=== PATIENT | female | born 1945 | race Caucasian/White ===

== ENCOUNTER 2016-12-18 09:58 | Inpatient (IN) ==
[2016-12-18] MEDS ORDERED: ONDANSETRON 4 MG/2 ML VIAL IV PRN (10:30)
--- NOTE | 2016-12-18 10:42 | Emergency Department Note ---
Lucy Marsh Gwan, am scribing for, and in the presence of, Austen Garcia MD 10:40 . Radha Marsh James D, MD, personally performed the services described in this documentation, ascribed by Moe Ayala in my presence, and it is both accurate and complete . Arrival - Arrival Chief Complaint: GI Bleed/Rectal Stated Complaint: abdominal cramping blood rectum excessive pain ED Nursing Triage Note: PT C/O BRIGHT RED BLOOD IN STOOL WITH CLOTS SINCE YESTERDAY MORNING AT 0400. DENIES RECTAL PAIN Mode of Arrival: Ambulatory Limitations: No Limitations Source: Patient, Family, Old Records Reviewed, RN Notes Reviewed Time Seen by Provider: 12/18/16 10:30 - History of Present Illness HPI Narrative: Patient is a 71 y/o female who presents to the ED with a c/o bright red stool with presence of clots with an onset yesterday at 0300. Patient stated that she has been constipated, that her pain from the left side of her abd radiates to her back and that she takes Linzess every morning to help with BM. Her associated sxs have been abd pain and vomiting. She is being followed by Dr. Nathan for lymphoma. Her PCP is Patricia Riley. Patient has a SHx of smoking .5 ppd cigarettes. She denies any rectal pain or having a scope performed. Patient was advised to remain in hospital for further evaluation. Onset (ago): hour(s) Consistency: constant Severity: moderate Allergies/Adverse Reactions: Allergies Allergy/AdvReac Type Severity Reaction Status Date / Time Sulfa (Sulfonamide AdvReac Unknown Diarrhea Verified 12/18/16 10:23 Antibiotics) ketorolac [From Toradol] AdvReac Agitated Verified 12/18/16 10:24 Home Medications: Home Medications Medication Instructions Recorded Confirmed Type fentaNYL [Fentanyl 50 mcg/hr Patch] 1 patch TRANSDERM Q3DAY #5 patch 12/03/15 Rx Enalapril Maleate [Enalapril 5 mg PO QAM 12/22/15 12/18/16 History Maleate] Linaclotide [Linzess] 290 mcg PO QAM 12/22/15 12/18/16 History Tapentadol HCl [Nucynta] 50 - 100 mg PO BID PRN 12/22/15 12/18/16 History Docusate Sodium [Colace] 100 mg PO BEDTIME 12/18/16 12/18/16 History Review of System - Review of System 12 point system: reviewed and no additional remarkable complaints except as stated - Review of System Constitutional: Absent: chills, fever Eyes: Absent: discharge, pain Head/Ears/Nose/Throat: Absent: earache, epistaxis Gastrointestinal: Present: as per HPI, abdominal pain, other (blood in stool) Medical,Surgical,& Family Hx - Medical History Cardio: History of: Hypertension HEENT: History of: Ear Problem (cater pulled tubes 12/21/15) Gastrointestinal: History of: GERD, GI Problems (abdominal wrapping/done by dr bynum) Musculoskeletal: History of: Degenerative Disk Disease, Osteoporosis, Musculoskeletal Problems (lost 7 vetebrae in back) No history of: Amputation Hematology: History of: Hematologic Cancer No history of: Anemia, Bleeding Problems, Clotting Problems, Blood Disorders Reproductive: No history of: Abnormal Pap Smear, Breast Cancer, Endometriosis, Ectopic , Ovarian Cysts, Complication Other: History of: Miscellaneous Medical Problems (LYMPHOMA (REMISSION FOR 2 YEARS)) - Surgical History Cardiac Surgeries: Patient Denies: Femoral-Popliteal Bypass Graft, Cardiac Catheterization, Cardiac Surgery, Carotid Endarterectomy, Internal Defibrillator, Vascular Access Devices Thoracic Surgeries: Patient denies;: Organ Transplant Neurologic Surgeries: Patient denies: Neurologic Surgery HEENT Surgeries: Patient denies: Carotid Endarterectomy Abdominal Surgeries: Surgical HX of: EGD (10 years ago) Patient denies: Splenectomy Reproductive Surgeries: Surgical HX of;: Hysterectomy (1971) Orthopedic Surgeries: Surgical HX of;: Implanted Devices (port removed 1 month ago) Patient denies;: Orthopedic Surgery, Spinal Surgery, Total Hip Replacement, Total Knee Replacement - Family History Family History: Reports;: Family Diabetes (mother/diabetes), Family Heart Disease (father), Family Hypertension (mother), Family Stroke (father/stroke) Denies;: Family Anesthesia Reaction, Family Cancer, Family Psychiatric Problems - Social History Smoking Status: Current every day smoker Frequency of Alcohol Use: None Type of Drug Use: None Exam Physical Examination: GENERAL: This is a ill-appearing white female in no apparent distress. VITAL SIGNS: HEENT: Head is normocephalic and atraumatic. Pupils are equally round and reactive to light. Extraocular movement are intact. Oropharynx is benign with moist mucous membranes. NECK: Neck is soft and supple without tenderness. There are no masses. There is no lymphadenopathy. LUNGS: Lungs are clear to auscultation bilaterally. Chest rises symmetrically. There is no chest wall tenderness. CV: Heart is regular rate and rhythm without murmurs, rubs, or gallops. ABDOMEN: Abdomen is soft, tender to palpation the left upper and left lower quadrants. There are no abnormal masses palpated. There is no organomegaly. Bowel sounds are present and active. Rectal: Grossly positive blood SKIN: Skin is warm and dry. No rash. EXTREMITIES: Patient has full range of motion without tenderness. There is no pedal edema. NEUROLOGIC: Awake, alert, and oriented x4. Cranial nerves II through XII are grossly intact. There are no motorsensory deficits. PSYCHIATRIC: Normal affect. Normal mood. Vital Signs: Vital Signs Temperature 98.0 F 12/18/16 10:18 Pulse Rate 72 12/18/16 10:18 Respiratory Rate 16 12/18/16 10:18 Blood Pressure 106/56 12/18/16 10:18 O2 Sat by Pulse Oximetry 97 12/18/16 10:18 Course - Consultations Consultation #1: Discussed with hospitalist. Patient will be admitted to their service. Time: 11:56 Results - Labs CBC & BMP: 12/18/16 11:04 12/18/16 11:04 Lab Results: I have reviewed the patients labs Labs: Laboratory Tests 12/18/16 11:04 WBC 14.4 H RBC 3.44 L Hgb 12.0 Hct 35.1 L MCH 35 H Neut % (Auto) 86.4 H Lymph % (Auto) 6.4 L Neut # (Auto) 12.4 H Lymph # (Auto) 0.9 L Laboratory Tests 12/18/16 12/18/16 12/18/16 11:04 11:04 11:04 Macrocytosis 1+ [place] Cells Slight INR 1.1 PT Patient/Control Mix 11.5 Circ Anticoag PTT 27.6 Sodium 130 L Potassium 3.7 Chloride 99 Carbon Dioxide 25 BUN 11 Creatinine 0.70 Calculated Osmolality 257.8 L ALT 12 L - EKG EKG results: interpreted by ERMD - Impressions EKG: Normal sinus rhythm, rate 66, nonspecific ST-T wave changes. - Diagnostic Findings Procedure: Abdominal x-ray: image reviewed by me (Nonspecific gas pattern), Chest x-ray: image reviewed by me (No infiltrates, no pleural effusions.) Disposition Clinical Impression: Lower GI bleeding Case discussed with: patient Disposition: Still a Patient Condition: Stable
[2016-12-18 11:11] LABS: Basophils # 0.1 10*3/uL (0.0-0.2); Basophils % 0.3 % (0.0-0.8); Eosinophils # 0.1 10*3/uL (0.0-0.87); Eosinophils % 0.6 % (0.00-10.9); Hematocrit 35.1 VOL% (35.7-47.0); Immature Granulocytes % 0.5 %; Immature Granulocytes Absolute 0.07 #; Lymphocytes # 0.9 10*3/uL (1.4-4.0); Lymphocytes % 6.4 % (21.3-54.2); Mean Corpuscular HGB Conc 34.2 GM/DL (32-36); Mean Corpuscular Hemoglobin 35 PG (27-34); Mean Platelet Volume 9.7 FL (9.6-12.0); Monocytes # 0.8 10*3/uL (0.11-0.8); Monocytes % 5.8 % (1.7-12.7); Neutrophils # 12.4 10*3/uL (1.4-7.4); Neutrophils % 86.4 % (38.7-73.9); Platelet Count 166 T/CUMM (130-400); Red Blood Count 3.44 MC/CUMM (3.8-5.5); Red Cell Distribution Width 15.8 % (9.3-17.3); White Blood Count 14.4 T/CUMM (4-12)
[2016-12-18 11:22] LABS: INR 1.1; PT Patient Result 11.5 SECS; Partial Thromboplastin Time 27.6 SECS (0-40)
[2016-12-18 11:29] LABS: Burr Cells Slight; Macrocytosis 1+
[2016-12-18 11:41] LABS: Alanine Aminotransferase 12 U/L (13-56); Albumin 3.7 G/DL (3.4-5.0); Alkaline Phosphatase 84 U/L (45-117); Aspartate Amino Transferase 19 U/L (0-37); Bilirubin,Total < 0.39 MG/DL (0.2-1.0); Blood Urea Nitrogen 11 MG/DL (7-18); Calcium 8.6 MG/DL (8.5-10.1); Glucose 83 MG/DL (74-106); Osmolality,Calculated 257.8 MOS/KG (273-304); Potassium 3.7 MMOL/L (3.5-5.1); Sodium 130 MMOL/L (136-145); Total Protein 6.4 G/DL (6.4-8.3)
--- NOTE | 2016-12-18 11:51 | XRay Report ---
Abdomen, 2 views History is abdominal pain Comparison 06/06/2014 There is mild gaseous distention of colon. Small bowel loops measure up to 2 cm with scattered diffuse air-fluid levels No free air or organomegaly seen Scoliotic deformity with chronic thoracolumbar compression fractures again seen. There is diffuse demineralization Impression: Mild ileus PROCEDURE INTERPRETED AT [facility] DEPARTMENT OF RADIOLOGY Final Report Signed by: Dr. Mendy Hollingsworth
--- NOTE | 2016-12-18 11:52 | XRay Report ---
History short of breath Comparison 12/22/2015 The heart is mildly enlarged with mild diffuse prominence the descending thoracic aorta seen on prior studies Lung markings unchanged. The lungs are diffusely hyperexpanded without confluent infiltrates seen. Impression: Mild cardiomegaly without acute infiltrate PROCEDURE INTERPRETED AT [facility] DEPARTMENT OF RADIOLOGY Final Report Signed by: Dr. Mendy Hollingsworth
[2016-12-18] MEDS ORDERED: fentaNYL 100 MCG/2 ML VIAL IV STA (12:28)
[2016-12-18] MEDS ORDERED: fentaNYL 100 MCG/2 ML VIAL ONE (12:29)
[2016-12-18] MEDS ORDERED: ONDANSETRON 4 MG/2 ML VIAL ONE (12:29)
[2016-12-18] MEDS ORDERED: ACETAMINOPHEN 325 MG TABLET PO PRN (12:32)
--- NOTE | 2016-12-18 14:53 | Hospitalist History & Physical ---
Assessment and Plan (1) Lower GI bleeding Status: Acute Assessment and plan: Admit to the hospitalist service. Monitored bed. NPO for now. Order serial h&h. Consult GI. IV hydration. Monitor patient. Current Visit: Yes (2) Chronic pain syndrome Status: Acute Assessment and plan: Pt. has fetanyl patch. Order prn po medications. Current Visit: No (3) History of lymphoma Status: Acute Current Visit: No History of Present Illness Chief complaint: shortness of breath History of present illness: Ms. Garcia is a 71 year old white female with a history of htn, gerd, degenerative disk disease, lymphoma, osteoporsis that presented to the ED today with complaints of bright red blood per rectum that began yesterday morning around 3 am. Pt.'s daughter is present at the bedside. Pt. also reports one episode of nausea and vomiting with abdominal pain associated with the bleeding. Pt. states that she has problems with constipation but this morning her stool was loose. Pt. denies fever, chills, dizziness, or rectal pain. H&H is 12/35 currently. CXR shows mild cardiomegaly without acute infiltrate. While in ED, pt also reports having another bloody stool. Pt's case has been discussed with Dr. Nicole, she will be admitted to the hospitalist service for further eval and treatment. Home Medications Medication Instructions Recorded Confirmed Type Enalapril Maleate [Enalapril 5 mg PO QAM 12/22/15 12/18/16 History Maleate] Linaclotide [Linzess] 290 mcg PO QAM 12/22/15 12/18/16 History Tapentadol HCl [Nucynta] 50 - 100 mg PO BID PRN 12/22/15 12/18/16 History Docusate Sodium [Colace] 100 mg PO BEDTIME 12/18/16 12/18/16 History fentaNYL [Fentanyl 50 mcg/hr Patch] 1 patch TRANSDERM Q3DAY 12/18/16 12/18/16 History Allergies Allergy/AdvReac Type Severity Reaction Status Date / Time Sulfa (Sulfonamide AdvReac Unknown Diarrhea Verified 12/18/16 10:23 Antibiotics) ketorolac [From Toradol] AdvReac Agitated Verified 12/18/16 10:24 Medical,Surgical,& Family Hx - Medical History Cardio: History of: Hypertension HEENT: History of: Ear Problem (cater pulled tubes 12/21/15) Gastrointestinal: History of: GERD, GI Problems (abdominal wrapping/done by dr bynum) Musculoskeletal: History of: Degenerative Disk Disease, Osteoporosis, Musculoskeletal Problems (lost 7 vetebrae in back) No history of: Amputation Hematology: History of: Hematologic Cancer No history of: Anemia, Bleeding Problems, Clotting Problems, Blood Disorders Reproductive: No history of: Abnormal Pap Smear, Breast Cancer, Endometriosis, Ectopic , Ovarian Cysts, Complication Other: History of: Miscellaneous Medical Problems (LYMPHOMA (REMISSION FOR 2 YEARS)) - Surgical History Cardiac Surgeries: Patient Denies: Femoral-Popliteal Bypass Graft, Cardiac Catheterization, Cardiac Surgery, Carotid Endarterectomy, Internal Defibrillator, Vascular Access Devices Thoracic Surgeries: Patient denies;: Organ Transplant Neurologic Surgeries: Patient denies: Neurologic Surgery HEENT Surgeries: Patient denies: Carotid Endarterectomy Abdominal Surgeries: Surgical HX of: EGD (10 years ago) Patient denies: Splenectomy Reproductive Surgeries: Surgical HX of;: Hysterectomy (1971) Orthopedic Surgeries: Surgical HX of;: Implanted Devices (port removed 1 month ago) Patient denies;: Orthopedic Surgery, Spinal Surgery, Total Hip Replacement, Total Knee Replacement - Family History Family History: Reports;: Family Diabetes (mother/diabetes), Family Heart Disease (father), Family Hypertension (mother), Family Stroke (father/stroke) Denies;: Family Anesthesia Reaction, Family Cancer, Family Psychiatric Problems - Social History Smoking Status: Current every day smoker Frequency of Alcohol Use: None Type of Drug Use: None Lives With:: Alone Functional capacity: independent ambulation - Constitutional Constitutional: Present: fatigue. Absent: chills - EENT Eyes: Present: loss of vision, requires corrective lense Ears: Present: decreased hearing. Absent: ear discharge - Cardiovascular Cardiovascular: Absent: chest pain at rest, edema - Respiratory Respiratory: Absent: cough, hemoptysis - Gastrointestinal Gastrointestinal: Present: abdominal pain, nausea, vomiting - Genitourinary Genitourinary: Absent: dysuria - Musculoskeletal Musculoskeletal: Present: back pain - Neurological Neurological: Absent: confusion, frequent falls - Psychiatric Psychiatric: Absent: anxiety - Hematologic/Lymphatic Hematologic/Lymphatic: Present: easy bruising Exam - Constitutional Vitals: Period Temp Pulse Resp BP Sys/Lauren Pulse Ox Last 24 Hr 98.0 F-98.0 F 68-77 15-19 97-136/49-69 97-100 General appearance: no acute distress, over weight - Head Head exam: Present: normal inspection, normocephalic - Eye Eye exam: Present: EOMI. Absent: scleral icterus Pupils: Present: BRAULIO. Absent: fixed - ENT ENT exam: Present: normal exam - Neck Neck exam: Absent: thyromegaly - Respiratory Respiratory exam: Present: clear to auscultation bilaterally. Absent: wheezes - Cardiovascular Cardiovascular exam: Present: regular rate and rhythm - GI/Abdominal GI/Abdominal exam: Present: normal bowel sounds, tenderness (left lower abdomen) , soft - Extremities Exam Extremities exam: Present: normal capillary refill, full ROM. Absent: edema - Back Exam Back exam: Absent: normal inspection - Neurological Exam Neurological exam: Present: alert, oriented X3 - Psychiatric Psychiatric exam: Present: normal affect, normal mood - Skin Skin exam: Present: normal color, warm, dry Results - Labs CBC & BMP: 12/18/16 11:04 12/18/16 11:04 Lab Results: I have reviewed the past 24 hour labs
--- NOTE | 2016-12-18 15:28 | Gastrointestinal Consult Note ---
Assessment and Plan (1) Lower GI bleeding Status: Acute Assessment and plan: 12/18-sudden onset of bright red rectal bleeding mixed with stool and lower abdominal pain and cramping on yesterday. Multiple episodes reported. H&H stable at present at 12/35. No prior endoscopy in the past. Takes Linzess daily for constipation/opioid-induced. Continue to monitor H&H at this time. Plan an addendum to followed by Dr. Hook. Current Visit: Yes History of Present Illness Chief complaint: Rectal bleeding History of present illness: Ms. Garcia is a 71 year old female who was admitted to the hospital with sudden onset of rectal bleeding on yesterday. Patient is a fair historian however daughter is at bedside and assist in information is needed. Information is also obtained from chart review. Patient has a prior history of lymphoma (followed by Dr. Nathan), DDD, osteoporosis, and hypertension. Patient states that she has chronic constipation due to her daily opioid use regimen. She states that she has had constipation off and on for the last 3 years. She states that yesterday morning she was awakened by the urge to have a bowel movement. She states she had an episode of diarrhea and when she turned to clean herself she noticed that the commode had bright red blood in it. She states that this continued throughout yesterday with 2-3 episodes as well as some lower abdominal pain. She also had some nausea but denies any vomiting with this. She states that she had another episode this morning and felt it was necessary to seek further evaluation. While in the emergency room, she she was noted to have another bloody stool. She states that she has not had rectal bleeding in the past. She denies a prior history of colon cancer in her family. Denies any history of endoscopy in the past. 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 She has a history as well of multiple compression fractures and is followed by the pain clinic and is noted to take Nucynta as well as fentanyl patches daily. On admission patient's H&H noted at 12/35. At this time this is noted to be close to her baseline approximately a year ago. She was noted to have elevated WBCs at 14,000. She is afebrile and denies any fever, chills or night sweats. Abdominal x-ray shows mild gaseous distention of the colon with possible mild ileus. Home Medications Medication Instructions Recorded Confirmed Type Enalapril Maleate [Enalapril 5 mg PO QAM 12/22/15 12/18/16 History Maleate] Linaclotide [Linzess] 290 mcg PO QAM 12/22/15 12/18/16 History Tapentadol HCl [Nucynta] 50 - 100 mg PO BID PRN 12/22/15 12/18/16 History Docusate Sodium [Colace] 100 mg PO BEDTIME 12/18/16 12/18/16 History fentaNYL [Fentanyl 50 mcg/hr Patch] 1 patch TRANSDERM Q3DAY 12/18/16 12/18/16 History Allergies Allergy/AdvReac Type Severity Reaction Status Date / Time Sulfa (Sulfonamide AdvReac Unknown Diarrhea Verified 12/18/16 10:23 Antibiotics) ketorolac [From Toradol] AdvReac Agitated Verified 12/18/16 10:24 Medical,Surgical,& Family Hx - Medical History Cardio: History of: Hypertension HEENT: History of: Ear Problem (cater pulled tubes 12/21/15) Gastrointestinal: History of: GERD, GI Problems (abdominal wrapping/done by dr bynum) Musculoskeletal: History of: Degenerative Disk Disease, Osteoporosis, Musculoskeletal Problems (lost 7 vetebrae in back) No history of: Amputation Hematology: History of: Hematologic Cancer No history of: Anemia, Bleeding Problems, Clotting Problems, Blood Disorders Reproductive: No history of: Abnormal Pap Smear, Breast Cancer, Endometriosis, Ectopic , Ovarian Cysts, Complication Other: History of: Miscellaneous Medical Problems (LYMPHOMA (REMISSION FOR 2 YEARS)) - Surgical History Cardiac Surgeries: Patient Denies: Femoral-Popliteal Bypass Graft, Cardiac Catheterization, Cardiac Surgery, Carotid Endarterectomy, Internal Defibrillator, Vascular Access Devices Thoracic Surgeries: Patient denies;: Organ Transplant Neurologic Surgeries: Patient denies: Neurologic Surgery HEENT Surgeries: Patient denies: Carotid Endarterectomy Abdominal Surgeries: Surgical HX of: EGD (10 years ago) Patient denies: Splenectomy Reproductive Surgeries: Surgical HX of;: Hysterectomy (1971) Orthopedic Surgeries: Surgical HX of;: Implanted Devices (port removed 1 month ago) Patient denies;: Orthopedic Surgery, Spinal Surgery, Total Hip Replacement, Total Knee Replacement - Family History Family History: Reports;: Family Diabetes (mother/diabetes), Family Heart Disease (father), Family Hypertension (mother), Family Stroke (father/stroke) Denies;: Family Anesthesia Reaction, Family Cancer, Family Psychiatric Problems - Social History Smoking Status: Current every day smoker Frequency of Alcohol Use: None Type of Drug Use: None 12 point system: reviewed and no additional remarkable complaints except as stated - Constitutional Constitutional: Present: as per HPI - EENT Eyes: Present: as per HPI Ears: Present: as per HPI Nose, mouth and throat: Present: as per HPI - Cardiovascular Cardiovascular: Present: as per HPI - Respiratory Respiratory: Present: as per HPI - Gastrointestinal Gastrointestinal: Present: as per HPI, abdominal pain, constipation, cramping, hematochezia - Genitourinary Genitourinary: Present: as per HPI - Musculoskeletal Musculoskeletal: Present: as per HPI, arthralgias, back pain - Neurological Neurological: Present: as per HPI - Psychiatric Psychiatric: Present: as per HPI - Endocrine Endocrine: Present: as per HPI - Hematologic/Lymphatic Hematologic/Lymphatic: Present: as per HPI Exam - Constitutional Vitals: Period Temp Pulse Resp BP Sys/Lauren Pulse Ox Last 24 Hr 97.9 F-98.0 F 68-79 15-20 97-136/49-94 97-100 General appearance: no acute distress, under weight - Head Head exam: Present: normal inspection, normocephalic - Eye Eye exam: Present: other (Lids and conjunctive are unremarkable). Absent: scleral icterus - ENT ENT exam: Present: normal exam, normal oropharynx - Neck Neck exam: Present: normal inspection - Respiratory Respiratory exam: Present: clear to auscultation bilaterally. Absent: rales, rhonchi, wheezes - Cardiovascular Cardiovascular exam: Present: regular rate and rhythm. Absent: diastolic murmur , JVD, systolic murmur - GI/Abdominal GI/Abdominal exam: Present: normal bowel sounds, soft. Absent: ascites, distended, mass, organomegaly, tenderness - Extremities Exam Extremities exam: Present: normal inspection, full ROM - Back Exam Back exam: Present: normal inspection - Neurological Exam Neurological exam: Present: alert, oriented X3 - Psychiatric Psychiatric exam: Present: normal affect, normal mood - Skin Skin exam: Present: normal color, warm, dry Results - Labs CBC & BMP: 12/18/16 11:04 12/18/16 11:04 Lab Results: I have reviewed the past 24 hour labs - Diagnostic Findings Procedure: Abdominal x-ray: report reviewed by me
[2016-12-18 16:10] LABS: Apearance,Urine CLEAR (Clear); Bilirubin,Urine Negative (Negative); Blood, Urine Moderate mg/dL (Negative); Glucose,Urine (UA) Negative (Negative); Ketones,Urine Negative (Negative); Mucus,Urine Occasional /LPF (Occasional); Nitrite,Urine Negative (Negative); Protein,Urine Negative; RBC,Urine 1 /HPF (0-4); Squamous Epithelial Cell,Urine Occasional /HPF (0-10); Urine Color Straw (Yellow); Urine Specific Gravity 1.005 (1.001-1.035); Urine Urobilinogen < 2.0 EU/DL (0.2-1.0); WBC,Urine 1 /HPF (0-6)
[2016-12-18] MEDS: SODIUM CHLORIDE 0.9% 1,000 ML IV SCH (17:20)
[2016-12-18] MEDS: NICOTINE 21 MG/24 HR PATCH TRANSDERM SCH (18:53)
[2016-12-18] MEDS ORDERED: POLYETHYLENE GLYCOL POWDER 255 GM BOTTLE PO ONE (19:15)
[2016-12-18] MEDS: ONDANSETRON 4 MG/2 ML VIAL IV PRN (20:04)
[2016-12-18 23:55] LABS: Hematocrit 30.7 VOL% (35.7-47.0); Hemoglobin 10.5 GM/DL (12.0-16.0)
[2016-12-19] MEDS: SODIUM CHLORIDE 0.9% 1,000 ML IV SCH ×3 (01:59→19:55)
[2016-12-19] MEDS ORDERED: MAGNESIUM CITRATE 300 ML BOTTLE PO ONE (06:00)
[2016-12-19] MEDS: MORPHINE 2 MG/1 ML SYRINGE IV PRN ×2 (06:11→21:21)
[2016-12-19] MEDS: ONDANSETRON 4 MG/2 ML VIAL IV PRN (06:16)
[2016-12-19 06:34] LABS: Basophils # 0.1 10*3/uL (0.0-0.2); Basophils % 0.5 % (0.0-0.8); Eosinophils # 0.2 10*3/uL (0.0-0.87); Eosinophils % 2.2 % (0.00-10.9); Hematocrit 32.6 VOL% (35.7-47.0); Hemoglobin 10.9 GM/DL (12.0-16.0); Immature Granulocytes % 0.8 %; Immature Granulocytes Absolute 0.07 #; Lymphocytes % 10.9 % (21.3-54.2); Mean Corpuscular HGB Conc 33.4 GM/DL (32-36); Mean Corpuscular Hemoglobin 34 PG (27-34); Mean Corpuscular Volume 102.2 FL (87-102); Monocytes # 0.8 10*3/uL (0.11-0.8); Monocytes % 8.2 % (1.7-12.7); Neutrophils # 7.1 10*3/uL (1.4-7.4); Neutrophils % 77.4 % (38.7-73.9); Platelet Count 172 T/CUMM (130-400); Red Blood Count 3.19 MC/CUMM (3.8-5.5); Red Cell Distribution Width 15.7 % (9.3-17.3); White Blood Count 9.2 T/CUMM (4-12)
[2016-12-19 06:38] LABS: PT Patient Result 11.1 SECS
[2016-12-19 07:01] LABS: Band Neutrophils 16 % (0-10); Burr Cells 3+; Eosinophils 1 % (0-10); Lymphocytes 11 % (20-55); Platelet Estimate Adequate; Polychromasia Slight; Segmented Neutrophils 65 % (50-85); Target Cells Slight; Total Cells Counted 100
[2016-12-19 07:16] LABS: Bilirubin,Total 0.9 MG/DL (0.2-1.0); Calcium 7.6 MG/DL (8.5-10.1); Osmolality,Calculated 267.8 MOS/KG (273-304); Potassium 3.9 MMOL/L (3.5-5.1); Risk Ratio 2.35; Thyroid Stimulating Hormone 3.43 uIU/ml (0.358-3.74); Total Protein 5.2 G/DL (6.4-8.3)
--- NOTE | 2016-12-19 07:45 | EKG Report ---
Stationary ECG Study [facility] ER Test Date: 12/18/2016 11:53:26 AM Pat Name: IVANIA PALOMARES Department: Room: 441 Gender: F Wine Maker: : 1945 Requested by: Austen Rodriguez Order Number: [id number] Reading MD: PEDRO RICKS Intervals [place] Rate: 66 P: 66 NM: 163 QRS: 54 QRSD: 79 T: 53 QT: 349 QTc: 362 Interpretive Statements SINUS RHYTHM Electronically Signed On 12-22-16 15:21:16 CDT by PEDRO RICKS [email or web address]
[2016-12-19] MEDS ORDERED: SODIUM PHOSPHATE ENEMA 133 ML BOTTLE RECTAL ONE (09:31)
[2016-12-19] MEDS: NICOTINE 21 MG/24 HR PATCH TRANSDERM SCH (09:41)
[2016-12-19] MEDS ORDERED: fentaNYL 100 MCG/2 ML VIAL ONE (12:21)
--- NOTE | 2016-12-19 12:40 | History and Physical Update ---
History and Physical Update - History and Physical H&P was reviewed, the patient examined and there: are no changes in the patients condition since last H&P was completed. - Physical Exam Mental Status: alert and oriented Heart: regular rate and rhythm Lung: clear to auscultation Abdomen: within normal limits Vitals: within normal limits
[2016-12-19] MEDS ORDERED: PHENYLEPHRINE 1 MG/10 ML SYRINGE IV ONE (12:41)
[2016-12-19] MEDS ORDERED: PROPOFOL 200 MG/20 ML VIAL IV ONE (12:41)
[2016-12-19] MEDS ORDERED: LIDOCAINE 100 MG/5 ML SYRINGE ONE (12:41)
--- NOTE | 2016-12-19 13:06 | Operative Note ---
Date of procedure: 12/19/16 Pre-op diagnosis: Lower GI bleeding Post-op diagnosis: other (Colon polyp, ischemic colitis) Procedure: Procedure note: Colonoscopy with hot biopsy removal polyp and biopsies Physician: Dr. Ganga Hook Brief clinical abstract: 71-year-old female was admitted with lower GI bleeding after developing lower abdominal pain. She has not required transfusion. She has never had colonoscopy in the past. Endoscopic findings: After informed consent was obtained, the patient was placed in the left lateral decubitus position. Digital rectal exam was performed with no palpable abnormalities felt. Pediatric videocolonoscope was inserted into the rectum and advanced to the cecum without difficulty. Retroflex view within the cecum was performed back to the level of the hepatic flexure. The endoscope was advanced back to the cecum and on withdrawal colonic mucosa was carefully examined. Bowel prep was of good quality. On the ileocecal valve there was a small approximately 6 mm polyp. This was removed with hot biopsy forceps. Distal to this no other polyps were seen. No abnormalities were noted until the proximal descending colon was reached. Extending from this level distally to the distal sigmoid colon there were patchy areas of edema with ulceration and some friability consistent with ischemic colitis. Several biopsies were obtained from these areas for pathologic examination. A few diverticuli were noted in the sigmoid colon. The endoscope was withdrawn in the rectum with retroflex view showing no abnormalities. The endoscope was removed and she appeared to tolerate the procedure well. Impression: #1 ascending colon polyp 2. Colitis 3. Sigmoid diverticulosis Plan: Advance diet and continue symptomatic treatment. Could discharge home when she is tolerating and pain well-controlled/resolved. Anesthesia: MAC Surgeon / Physician: Jose Hook Estimated blood loss: minimal Specimens: other Condition: stable Disposition: post procedure unit Results - Labs CBC & BMP: 12/19/16 04:36 12/19/16 04:36 Discharge Plan - Discharge Medications No Action Enalapril Maleate [Enalapril Maleate] 5 mg PO QAM Tapentadol HCl [Nucynta] 50 - 100 mg PO BID PRN PRN Reason: Pain Linaclotide [Linzess] 290 mcg PO QAM Docusate Sodium [Colace] 100 mg PO BEDTIME fentaNYL [Fentanyl 50 mcg/hr Patch] 1 patch TRANSDERM Q3DAY - Follow Up or Referral - Forms/Instructions
--- NOTE | 2016-12-19 13:11 | Anesthesia Post-Op ---
Anesthesia Post OP - Post Ansesthetic Evaluation Patient seen in post op: Yes Resp: within normal limits CV: within normal limits Mental: within normal limits Temp: within normal limits [id number]: within normal limits Nausea and Vomiting: within normal limits Pain: within normal limits
--- NOTE | 2016-12-19 16:19 | Hospitalist Progress Note ---
Assessment and Plan (1) Lower GI bleeding Status: Acute Assessment and plan: (1) Lower GI bleeding Status: Acute Assessment and plan: s\p C-scope , showing sigmoid divertiulosis, colitis, and colon polyp GI is following , advice to monitot tonight if stable DC in am , no further GI bleeding Current Visit: Yes (2) Chronic pain syndrome Status: Acute Assessment and plan: Pt. has fetanyl patch. Order prn po medications. Current Visit: No Current Visit: Yes (2) History of lymphoma Status: Acute Assessment and plan: in remission Current Visit: No Hospitalist: Subjective Interval history: clinically stable no further lower GI bleeding s\p c-scope showing sigmoid diverticulosis, colitis and colon polyp GI consulted c Exam - Constitutional Vitals: Period Temp Pulse Resp BP Sys/Lauren Pulse Ox Last 24 Hr 97.3 F-99 F 65-89 12-20 81-170/45-85 91-100 heent, pearle neck, supple. chest clear. cvs, s1 s2. abd, soft, bs+ production scheduler, alert orientedx3 afocak Results - Labs CBC & BMP: 12/19/16 04:36 12/19/16 04:36
[2016-12-20 02:17] LABS: Basophils % 0.7 % (0.0-0.8); Eosinophils # 0.2 10*3/uL (0.0-0.87); Eosinophils % 2.5 % (0.00-10.9); Hematocrit 30.2 VOL% (35.7-47.0); Hemoglobin 10.1 GM/DL (12.0-16.0); Immature Granulocytes % 0.5 %; Immature Granulocytes Absolute 0.03 #; Lymphocytes # 0.8 10*3/uL (1.4-4.0); Lymphocytes % 13.9 % (21.3-54.2); Mean Corpuscular HGB Conc 33.4 GM/DL (32-36); Mean Corpuscular Hemoglobin 34 PG (27-34); Mean Platelet Volume 10.3 FL (9.6-12.0); Monocytes # 0.6 10*3/uL (0.11-0.8); Neutrophils # 4.3 10*3/uL (1.4-7.4); Neutrophils % 72.4 % (38.7-73.9); Platelet Count 151 T/CUMM (130-400); Red Blood Count 2.99 MC/CUMM (3.8-5.5); Red Cell Distribution Width 15.4 % (9.3-17.3)
[2016-12-20 02:54] LABS: PT Patient Result 10.5 SECS
[2016-12-20] MEDS: NICOTINE 21 MG/24 HR PATCH TRANSDERM SCH (08:48)
--- NOTE | 2016-12-20 09:31 | Gastrointestinal Progress Note ---
Assessment and Plan (1) Lower GI bleeding Status: Acute Assessment and plan: 12/20-no further overt bleeding. H&H is stable at 10/30. C scope results noted with pathology report pending. Discussed case with Dr. Gallardo and crystal to discharge from GI standpoint and will follow up with patient regarding pathology results. Plan an addendum to followed by Dr. Hook. 12/18-sudden onset of bright red rectal bleeding mixed with stool and lower abdominal pain and cramping on yesterday. Multiple episodes reported. H&H stable at present at 12/35. No prior endoscopy in the past. Takes Linzess daily for constipation/opioid-induced. Continue to monitor H&H at this time. Plan an addendum to followed by Dr. Hook. Current Visit: Yes Gastroenterology - PN: Subj Interval history: CC: GI bleed Patient is seen, awake and alert sitting up in chair. States she had an uneventful night and rested well. Denies any abdominal pain, nausea vomiting. She denies any further bleeding. Colonoscopy on yesterday showed a sending colon polyp, colitis and sigmoid diverticulosis. Pathology is still pending at this time. Patient is tolerating her diet well. H&H is stable at 10/30. She states her pain is controlled as well at this time. Patient is wishing to be discharged home today. Discussed with Dr. Gallardo did from GI standpoint at this time patient is able to be discharged and we will follow with her regarding her pathology report. Abdomen is soft, nontender. ROS: Denies shortness of breath or chest pain Exam (Progress Note) - Constitutional Vitals: Period Temp Pulse Resp BP Sys/Lauren Pulse Ox Last 24 Hr 97.3 F-99.4 F 65-89 12-20 94-170/45-85 91-100 General appearance: no acute distress, under weight - Head Head exam: Present: normal inspection, normocephalic - Eye Eye exam: Present: other (Lids and conjunctive are unremarkable). Absent: scleral icterus - ENT ENT exam: Present: normal exam, normal oropharynx - Neck Neck exam: Present: normal inspection - Respiratory Respiratory exam: Present: clear to auscultation bilaterally. Absent: rales, rhonchi, wheezes - Cardiovascular Cardiovascular exam: Present: regular rate and rhythm. Absent: diastolic murmur , JVD, systolic murmur - GI/Abdominal GI/Abdominal exam: Present: normal bowel sounds, soft. Absent: ascites, distended, mass, organomegaly, tenderness - Extremities Exam Extremities exam: Present: normal inspection, full ROM - Back Exam Back exam: Present: normal inspection - Neurological Exam Neurological exam: Present: alert, oriented X3 - Psychiatric Psychiatric exam: Present: normal affect, normal mood - Skin Skin exam: Present: normal color, warm, dry Results - Labs CBC & BMP: 12/20/16 01:13 12/19/16 04:36 Lab Results: I have reviewed the past 24 hour labs
[2016-12-20] MEDS ORDERED: SIMETHICONE CHEW 125 MG TABLET PO ONE (10:30)
--- NOTE | 2016-12-20 11:12 | Discharge Summary ---
<Marcy Huizar - Last Filed: 12/20/16 11:06> Hospital Course - Hospital Course Hospital Course: Ms. Garcia is a 71 year old white female with a history of htn, gerd, degenerative disk disease, lymphoma, osteoporsis that presented to the ED on with complaints of bright red blood per rectum that started the day prior. Patient also reported an episode of nausea and vomiting with abdominal pain associated with bleeding. H&H in the ED was 12/35. Chest x-ray revealed mild cardiomegaly without acute infiltrate. In the ED the patient also reported having another bloody stool. Patient denied ever having any issues with GI bleeding in the past. Patient did also report issues with chronic constipation. Patient was admitted to the hospitalist service for further evaluation and treatment. GI was consulted to assist in the care of the patient. GI stated that her presentation was suggestive of ischemic colitis. On 12/09, patient underwent a colonoscopy. Impression of colonoscopy was ascending colon polyp, colitis, and sigmoid diverticulosis. Patient tolerated procedure well. Her H/H has remained stable. She has now reached maximal benefit of inpatient and will be discharged to home. Diagnosis - Discharge Diagnosis (1) Lower GI bleeding Status: Acute (2) Chronic pain syndrome Status: Acute (3) History of lymphoma Status: Acute Discharge Plan - Discharge Data Disposition: Disch To Home/Self Care - Discharge Medications Continue Tapentadol HCl [Nucynta] 50 - 100 mg PO BID PRN PRN Reason: Pain Linaclotide [Linzess] 290 mcg PO QAM Docusate Sodium [Colace] 100 mg PO BEDTIME fentaNYL [Fentanyl 50 mcg/hr Patch] 1 patch TRANSDERM Q3DAY Discontinued Enalapril Maleate [Enalapril Maleate] 5 mg PO QAM - Follow Up or Referral - Forms/Instructions Exam - Constitutional Vitals: Period Temp Pulse Resp BP Sys/Lauren Pulse Ox Last 24 Hr 97.3 F-99.4 F 65-89 12-20 94-170/45-85 91-100 Discharge Results Procedures and tests throughout hospitalization: Pending Orders 12/21/16 04:00 Prothrombin Time INR IN AM Labs on day of discharge: Labs from last 24 hours 12/20/16 12/20/16 01:13 01:13 WBC 6.0 D RBC 2.99 L Hgb 10.1 L Hct 30.2 L MCV 101.0 MCH 34 MCHC 33.4 RDW 15.4 Plt Count 151 MPV 10.3 Neut % (Auto) 72.4 Lymph % (Auto) 13.9 L [place] % (Auto) 10.0 Eos % (Auto) 2.5 Baso % (Auto) 0.7 Neut # (Auto) 4.3 Lymph # (Auto) 0.8 L [place] # (Auto) 0.6 Eos # (Auto) 0.2 Baso # (Auto) 0.0 Immature Gran % 0.5 Nucleated RBC % 0.0 Immature Gran # 0.03 Nucleated RBCs # 0.00 INR 1.0 PT Patient/Control Mix 10.5 DS: Provider Date of admission: 12/18/16 12:30 Primary care physician: Diallo Nathan MD Attending physician on admission: Domingo Nicole MD Consults: 12/18/16 12:37 Consult to Physician [CONS] Routine Comment: Consulting Provider: Jose Hook Consulting Provider Notified: Yes When should Consulting Provider be notified: Now Consult to Specialist Group: Gastroenterology When should Consulting Provider be notified: Now Person Notified: SAWYER Date Notified: 12/18/16 Time Notified: 14:29 12/18/16 14:57 Consult to Dietitian [CONS] Routine Reason for Dietitian: Diet Instruction Discharging clinician: Marcy Huizar NP <Nemesio Gallardo - Last Filed: 12/20/16 11:41> Hospital Course - Time spent with patient Time with patient DS: Less than 30 minutes (25) Diagnosis - Discharge Diagnosis (1) Lower GI bleeding Status: Resolved Discharge Plan - Discharge Data Condition at Discharge: Stable Discharge Diet: advance to your usual diet Activity: increase activity as tolerated Hygiene: no restrictions Weight Bearing at Discharge: weight bear as tolerated Driving: no restrictions Exam - Constitutional General appearance: normal weight - Head Head exam: Present: normocephalic, atraumatic - Eye Eye exam: Present: EOMI Pupils: Present: BRAULIO - ENT ENT exam: Present: normal exam - Neck Neck exam: Present: normal inspection - Respiratory Respiratory exam: Present: clear to auscultation bilaterally. Absent: wheezes - Cardiovascular Cardiovascular exam: Present: regular rate and rhythm - GI/Abdominal GI/Abdominal exam: Present: normal bowel sounds, soft. Absent: tenderness, rebound - Extremities Exam Extremities exam: Present: normal inspection - Back Exam Back exam: Present: normal inspection - Neurological Exam Neurological exam: Present: alert, oriented X3 - Psychiatric Psychiatric exam: Present: normal affect, normal mood - Skin Skin exam: Present: warm, intact
--- NOTE | 2016-12-20 12:28 | Pathology Report from [facility] ---
[facility] ACCESSION # : [id number] PATIENT NAME : Karen Palomares ORDERING DR : JOSE LEVI MD CLINICAL HX: Abdominal pain, constipation, ischemic colitis POST-OP DX: #1 Colon polyps #2 Ischemial colitis SPECIMEN INFO: #1 Ascending colon polyp #2 Sigmoid colon biopsy ischemic colitis GROSS DESCRIPTION: #1 Received in formalin labeled with the patients name KAREN PALOMARES and #1 consists of fragments of hadley tissue measuring 0.2 x 0.1 cm. Submitted in cassette #1.#2 Received in formalin labeled with the patients name KAREN PALOMARES and #2 consists of a 0.2 x 0.2 cm fragment of hadley tissue. Submitted in cassette #2. DIAGNOSIS FOR KAREN PALOMARESk: #1 ASCENDING COLON POLYPS: Very scanty specimen with a few benign superficial colonic fragments.#2 SIGMOID COLON BIOPSY : Ulceration with acute inflammation, fragments; c/w ischemic colitis. COLLECTED DATE: 12/19/2016 [facility] REPORT DATE: 12/20/2016 ELECTRONICALLY SIGNED BY: Tamela Beck M.D. 12/20/2016 - 10:40:29 [facility]Michael
[2016-12-20 13:38] VITALS: BP 140/96
[2016-12-20] MEDS: SODIUM CHLORIDE 0.9% 1,000 ML IV SCH (14:03)
== END 2016-12-20 13:00 | disposition home or self-care (01) | DRG 394 ==
LOC: N.ED 09:58 → SUATTDRO 12:30 → N.EDINP 12:30 → N.4E 14:24
PROVIDERS: ADMIT Internal Medicine Infectious Disease; ATTEND Internal Medicine